=== PATIENT | female | born 2000 | race Caucasian/White ===

== ENCOUNTER 2024-11-27 01:26 | Emergency (ER) | payer BC ==
[~2024-11-27] VITALS: Ht 165.1 cm; Wt 138.0 kg
[2024-11-27] MEDS ORDERED: VENTOLIN HFA18 GM INH (01:44)
[2024-11-27] MEDS ORDERED: WEGOVY0.25 MG/0. SQ (01:46)
[2024-11-27] MEDS ORDERED: SODIUM CHLORIDE 0.9% 500 ML IV ONE (02:00)
[2024-11-27] MEDS ORDERED: diphenhydrAMINE HCL 50 MG/ML VIAL IV ONE (02:00)
[2024-11-27] MEDS ORDERED: ALBUTEROL/IPRATROPIUM 3 ML NEB INH ONE (02:00)
[2024-11-27] MEDS ORDERED: KETOROLAC TROMETHAMINE 30 MG/ML VIAL IV ONE (02:00)
[2024-11-27] MEDS ORDERED: SUMAtriptan succinate 6 MG/0.5 ML VIAL SUB-Q ONE (02:00)
[2024-11-27] MEDS ORDERED: METOCLOPRAMIDE HCL 10 MG/2 ML SDV IV ONE (02:00)
[2024-11-27 02:19] LABS: BASOPHILS 0.8 % (0.1-1.2); EOSINOPHILS 0.5 % (0.7-5.8); HEMOGLOBIN 14.7 g/dL (11.2-15.7); LYMPHOCYTES 16.8 % (19.3-51.7); MCH 30.2 PG (25.6-32.2); MCHC 33.4 g/dL (32.2-35.5); MCV 90.5 fL (79.4-94.8); MONOCYTES 10.1 % (4.7-12.5); NEUTROPHILS 71.4 % (34.0-71.1); PLATELET COUNT 281 K/uL (182-369); RBC 4.86 M/uL (3.93-5.22)
[2024-11-27 02:38] LABS: ALBUMIN 3.7 g/dL (3.4-5.0); ALBUMIN/GLOBULIN RATIO 0.97 (1.1-2.4); ANION GAP 14.7 (7-21); BILIRUBIN, TOTAL 0.3 mg/dL (0.2-1.0); BUN/CREATININE RATIO 11.23 (6.0-28.6); CALCIUM 9.1 mg/dL (8.5-10.1); CREATININE, SERUM 0.89 mg/dL (0.55-1.02); POTASSIUM 3.7 mmol/L (3.5-5.1); PROTEIN, TOTAL 7.5 g/dL (6.4-8.2)
[2024-11-27] MEDS ORDERED: CYCLOBENZAPRINE10 MG PO (03:11)
[2024-11-27] MEDS ORDERED: AZITHROMYCIN 250 MG HOME.PACK PO ONE (03:15)
[2024-11-27] MEDS ORDERED: ALBUTEROL SULFATE 8 GM HOME.PACK INH ONE (03:15)
[2024-11-27] MEDS ORDERED: methylPREDNISolone 4 MG HOME.PACK PO ONE (03:15)
[2024-11-27 03:30] VITALS: BP 135/81
== END 2024-11-27 03:30 | disposition home or self-care (01) ==
LOC: ED 01:26
PROVIDERS: Family Medicine
DX: J45.901 Unspecified asthma with (acute) exacerbation (principal); R51.9 Headache, unspecified; Z79.899 Other long term (current) drug therapy
CPT/HCPCS: 36415; 71045; 80053; 83735; 84703; 85025; 94640; 94664; 96374; 96375; 99284-25; J1200; J1885; J2765; J3030; J7040; U0002

== ENCOUNTER 2025-02-19 09:05 | Emergency (ER) | payer OTHER ==
[~2025-02-19] VITALS: Ht 165.1 cm; Wt 137.3 kg
[~2025-02-19 09:05] MED LIST: CYCLOBENZAPRINE10 MG PO; VENTOLIN HFA18 GM INH; WEGOVY0.25 MG/0. SQ
[2025-02-19] MEDS ORDERED: KETOROLAC TROMETHAMINE 15 MG/ML VIAL IV ONE (09:30)
[2025-02-19 09:47] LABS: BASOPHILS 1.0 % (0.1-1.2); EOSINOPHILS 1.7 % (0.7-5.8); LYMPHOCYTES 29.2 % (19.3-51.7); MCH 31.2 PG (25.6-32.2); MCHC 34.7 g/dL (32.2-35.5); MCV 89.9 fL (79.4-94.8); MONOCYTES 5.7 % (4.7-12.5); NEUTROPHILS 62.3 % (34.0-71.1); RBC 5.03 M/uL (3.93-5.22)
[2025-02-19 10:00] LABS: BLOOD/HGB, URINE LARGE (Negative); KETONE, URINE NEGATIVE (Negative); LEUK ESTERASE, URINE NEGATIVE (negative); NITRITE, URINE NEGATIVE (negative)
[2025-02-19 10:04] LABS: ALT (SGPT) 59.0 U/L (14-59); AST (SGOT) 25.0 U/L (15-37); GLOMERULAR FILTRATION RATE,EST 66.0 mL/min (>60); PROTEIN, TOTAL 7.7 g/dL (6.4-8.2); UREA NITROGEN 16.0 mg/dL (7-18)
[2025-02-19 10:11] LABS: EPITHELIAL CELLS, URINE SQUAMOUS 3+ /lpf (0-1+)
[2025-02-19 10:12] LABS: BACTERIA, URINE 1+ /hpf (negative); CASTS, URINE NONE SEEN \\lpf; CRYSTALS, URINE NONE SEEN (0-1+); REFLEX CULTURE, URINE No (No)
[2025-02-19] MEDS ORDERED: HYDROCODON-ACE1 EA10 PO (10:44)
[2025-02-19] MEDS ORDERED: FLOMAX0.4 MG PO (10:44)
[2025-02-19] MEDS ORDERED: IBU600 MG PO (10:44)
[2025-02-19] MEDS ORDERED: ONDANSETRON ODT4 MG PO (10:44)
[2025-02-19 11:22] VITALS: BP 129/75
== END 2025-02-19 11:23 | disposition home or self-care (01) ==
LOC: ED 09:05
PROVIDERS: Emergency Medicine
DX: N20.1 Calculus of ureter (principal); J45.909 Unspecified asthma, uncomplicated; R73.03 Prediabetes; Z79.899 Other long term (current) drug therapy
CPT/HCPCS: 36415; 80053; 81001; 85025; 96374; 96375; 99283-25; J1885; J2405